=== PATIENT | male | born 1945 | race African-American/Black ===

== ENCOUNTER → 2017-12-25 | Day surgery (SDC) | payer OTHER ==
[~2017-12-25] VITALS: Ht 175.3 cm; Wt 70.3 kg
--- NOTE | 2017-12-25 16:35 | Operative Report ---
Operative/Inv Procedure Report Surgery Date: 12/25/17 Name of Procedure: Bipolar vaporization of the prostate Pre-Operative Diagnosis: BPH/urinary retention Post-Operative Diagnosis: Same Estimated Blood Loss: 50ml to 100ml Surgeon/User Interface Developer: Get SALDANA,Vishnu Arredondo Anesthesia: general endotracheal tube, laryngeal mask airway Operative/Procedure Note Note: Patient has a history of chronic BPH, with previous urinary retention. At previous hospitalization for sepsis and renal failure, but has done well with a Sharif catheter indwelling. After various evaluations, he was given options of observation with continued Sharif catheter, or surgical intervention. After reviewing various options, he was interested now in undergoing a bipolar vaporization of the prostate. We discussed this at length including the risks/ benefits thereof. He was made aware of the combination/indications thereof including but not exclusive of , heart attack, stroke, hemorrhage requiring transfusion, damage to adjacent organs including the bladder, prostate, urethra. He is aware the potential for stricture disease. He is aware of the potential for continued retention possibly requiring a Sharif catheter. He is aware of the potential risk of incontinence, and fistula formation. He was agreeable to undergo the procedure, which is as follows. After uneventful administration of general anesthesia patient was supine on the operating table and placed in the thigh position and prepped and draped in sterile fashion. His previous indwelling Sharif catheter had been removed. At this point a 22 [place] scope was passed per urethra and into the bladder urethra was noted to be otherwise normal. His prostate was obstructing with bilateral lobar obstruction, approximate 3.5 cm in length. The cystoscope was removed, and a 26 [place] resectoscope was passed per urethra and into the bladder using the obturator. At this point using the Stortz bipolar vaporization, standard procedure was performed. A groove was created on the patient's left side at approximately 2 o'clock position from the bladder neck out to the area of the veru montanum. This was carried down to the appropriate level. At this point the groove was carried out from the 2 o'clock position to the 5 o'clock position. Excellent hemostasis was obtained throughout. Similar procedure was carried out on the opposite side at approximately 10 o'clock position. The groove was created and carried down to the 7 o'clock position. At this point vaporization of the floor of the prostate was undertaken from the 5 o'clock position to the 7 o'clock position from the bladder neck out to the verumontanum. Similar process was carried out on the roof of the prostate from the 2 o'clock position to 10 o'clock position. This was also done from the bladder neck to the verumontanum. Upon completion of procedure was noted to be excellent hemostasis. The entire resection bed was treated with bipolar cauterization for coagulation. Some tissue was removed throughout the procedure , was sent for analysis. Was noted to be excellent hemostasis with clear reflux. Inspection of bladder did not reveal any retained specimen or bladder damage. The resectoscope was removed and a 24 [place] catheter was passed per urethra and into the bladder 10 mL were placed in the balloon. Reflux noted to be clear. The patient was awakened and returned to recovery room in good condition.
== END ==
LOC: STS 01:34
DX: N40.1 Benign prostatic hyperplasia with lower urinary tract symptoms (principal); R33.8 Other retention of urine; N41.8 Other inflammatory diseases of prostate; J45.909 Unspecified asthma, uncomplicated
CPT/HCPCS: J0696